=== PATIENT | female | born 1995 | race Caucasian/White ===

== ENCOUNTER 2023-01-11 11:39 | Outpatient (CLI) | payer OTHER, SELFPAY ==
--- NOTE | 2023-01-11 13:08 | PM.OBTRLD ---
Visit Information Visit Information Date of evaluation: 01/11/23 On-call OB Provider: Elana Kenny Reason for Evaluation: Yes pre-term labor Vital Signs Vital Signs: 110/56 HR100 [facility] Social History Smoking Status: Former smoker Comment: NKDA Meds: sertraline OB: labor 32w, emergent PCD, baby Analisa demise at 2w of life Med: denies Surg: PCD 2020 Review of Systems Review of Systems ROS: Yes All systems reviewed with the patient and are negative except as otherwise documented Exam Vital Signs (past 8 hours): 110/56 HR101 Const General: cooperative, healthy appearing and comfortable Eyes General: appearance normal, both eyes and all related structures Resp Effort & Inspection: normal respiratory effort GI Palpation: soft Speculum Exam - Vagina: normal appearance of the vagina Speculum Exam - Cervix: closed Manual OB Exam: dilated fingertip, effaced 25% and station high Skin General: no rashes or lesions noted Neuro General: patient alert and patient oriented x3 Extrem General: normal to inspection Psych Appearance: grossly normal Evaluation Evaluation Baseline heart rate: 120 Variability: Moderate (11-25) monitor accelerations: Present (15x15) Monitor Decelerations: Absent Category of Tracing: Reactive Status: Category l Cervical dilation (cm): 0 Cervical effacement (%): 25 station: -3 Diagnosis, Plan/Disposition Plan/Disposition Plan: 28yo at 28.5w brought to triage via EMS from her work. She reports she closed her eyes at her desk and woke up and had a panic attack. First child born at 32w via emergency PCD due to labor at [facility] 2020. Baby girl Analisa required transfer to [facility], diagnosed with rare AR condition and demise at ~2w of life. She reports she has increasingly become anxious as she gets closer to 32w. She does take sertraline but forgot to take today. She is also starting to see therapist on Sunday in a few days. She did complain of pelvic cramping and would also like to make sure she is not in labor again. Denies regular contractions or pressure. No leaking or bleeding. Good movement. VSS as above Benign exam NST reactive SVE closed 28yo at 28.5w, false labor third trimester; also mental health disorder complicating - NST reactive - labor precautions - Encouraged sertraline and mental health therapy which is scheduled - Follow up with primary OB
== END 2023-01-11 13:08 | disposition home or self-care (01) ==
LOC: LABOR 12:05 → OB 02-12 10:31
PROVIDERS: PCP Nurse Practitioner Family; Referring Provider Obstetrics & Gynecology; Visit Provider Obstetrics & Gynecology
DX: O47.03 False labor before 37 completed weeks of gestation, third trimester (principal); O99.343 Other mental disorders complicating pregnancy, third trimester; F99 Mental disorder, not otherwise specified; Z3A.28 28 weeks gestation of pregnancy
CPT/HCPCS: 59025; G0378; G0379

== ENCOUNTER 2023-04-15 07:53 | Emergency (ER) | payer OTHER, SELFPAY ==
[2023-04-15] VITALS (10 sets, daily range): BP systolic 105–120; BP diastolic 66–75; PULSE 74–95; RESP 20; TEMP 36.9; O2SAT 95–98; BMI 34.1
--- NOTE | 2023-04-15 07:59 | ED.GENADULT ---
HPI - General Adult General Chief complaint: Abdominal Pain Stated complaint: RUQ px Time Seen by Provider: 04/15/23 07:54 Source: patient Mode of arrival: EMS Limitations: no limitations History of Present Illness HPI narrative: Patient is a 28-year-old female. She states that on the of last month (approximately 1.5 weeks ago) she had a laparoscopic cholecystectomy at an outside hospital. Things went well. States she woke up this morning with discomfort in her upper abdomen. She states that it feels like it did when she had gallstones. It has been persistent since she woke up this morning. Some nausea but no vomiting. No fevers. States that the discomfort is not worse when you touch on her abdomen. No change in bowel habits or urine symptoms. Related Data Home Medications Medication Instructions Recorded Confirmed dextroamphetamine-amphetamine ER 1 cap PO QAM 11/08/22 11/08/22 10 mg 24hr capsule,extend release sertraline 100 mg tablet mg PO 11/08/22 11/08/22 Allergies Allergy/AdvReac Type Severity Reaction Status Date / Time No Known Drug Allergies Allergy Unverified 11/08/22 13:37 Review of Systems Constitutional Constitutional: Reports system reviewed and no additional complaints, except as documented Cardiovascular Cardiovascular: Reports system reviewed and no additional complaints, except as documented Respiratory Respiratory: Reports system reviewed and no additional complaints, except as documented Gastrointestinal Gastrointestinal: Reports system reviewed and no additional complaints, except as documented Integumentary/Breasts Skin/Breast: Reports system reviewed and no additional complaints, except as documented Patient History Social History Smoking Status: Former smoker Smoking Status: Former smoker Exam Initial Vital Signs Initial Vital Signs: Vital Signs Temperature 98.4 F 04/15/23 08:03 Pulse Rate 81 04/15/23 08:03 Respiratory Rate 20 04/15/23 08:03 Blood Pressure 119/74 04/15/23 08:03 Pulse Oximetry 98 04/15/23 08:03 Oxygen Delivery Method Room Air 04/15/23 08:03 HENMT Head: normal to inspection and normocephalic Resp Effort & Inspection: normal respiratory effort Auscultation: clear to auscultation bilaterally Cardio Rate: regular rate Rhythm: regular rhythm GI Inspection: normal to inspection and non-distended Palpation: soft, No firm, No guarding and No tender Skin Other: Surgical wounds healing well. No signs of infection. Neuro General: patient alert, patient awake and moves all extremities Extrem General: capillary refill normal Course Orders Ordered: ED Orders 04/15/23 08:01 Complete Blood Count AUTO DIFF Stat Comprehensive Metabolic Panel Stat Lipase Stat Test Serum,Qual Stat 04/15/23 08:23 MRCP [MR abdomen wo/w con] Stat Discontinued Medications Sodium Chloride (Normal Saline 0.9%) 1,000 mls @ 1,000 mls/hr IV BOLUS ONE Stop: 04/15/23 09:25 Last Admin: 04/15/23 08:34 Dose: 1,000 mls/hr Documented By: MADDIE Ketorolac Tromethamine (Ketorolac 30 Mg/Ml Vial) 30 mg IV NOW ONE Stop: 04/15/23 08:24 Last Admin: 04/15/23 08:34 Dose: 30 mg Documented By: MADDIE Ketorolac Tromethamine (Ketorolac 30 Mg/Ml Vial) 30 mg IV NOW ONE Stop: 04/15/23 08:27 Last Admin: 04/15/23 09:37 Dose: Not Given Documented By: RB Vital Signs Vital signs: Vital Signs - 8 hr 04/15/23 08:03 04/15/23 08:05 04/15/23 08:06 Temperature 98.4 F Pulse Rate 81 76 Respiratory Rate 20 Blood Pressure 119/74 120/75 Pulse Oximetry 98 98 Oxygen Delivery Method Room Air 04/15/23 08:06 04/15/23 08:30 04/15/23 08:31 Temperature Pulse Rate 74 78 Respiratory Rate Blood Pressure 106/66 Pulse Oximetry 98 97 Oxygen Delivery Method 04/15/23 08:31 04/15/23 09:27 04/15/23 09:30 Temperature Pulse Rate 80 95 H 90 Respiratory Rate Blood Pressure Pulse Oximetry 97 98 97 Oxygen Delivery Method 04/15/23 10:00 04/15/23 10:16 04/15/23 10:16 Temperature Pulse Rate 84 86 Respiratory Rate Blood Pressure 107/72 Pulse Oximetry 95 98 Oxygen Delivery Method Medical Decision Making Lab Data Lab results reviewed: Yes I reviewed the patient's lab results. 04/15/23 08:01 04/15/23 08:01 Labs: Lab Results 04/15/23 Range/Units 08:01 WBC 8.2 (4.5-11.0) X10^3/uL RBC 3.91 L (4.0-5.2) X10^6/uL Hgb 11.1 L (12.0-16.0) g/dL Hct 33.4 L (36-46) % MCV 85.3 (80-100) fL MCH 28.4 (26-34) PG MCHC 33.2 (30-36) % RDW 13.1 (11.6-14.8) % Plt Count 257 (150-400) X10^3/uL Neut % (Auto) 72.5 (50-75) % Lymph % (Auto) 21.0 L (25-40) % [place] % (Auto) 3.1 (3-14) % Eos % (Auto) 2.5 (2-4) % Baso % (Auto) 0.9 (0-2) % Neut # (Auto) 5900 (1144-3224) /uL Lymph # (Auto) 1700 (1977-4291) /uL [place] # (Auto) 300 (0-900) /uL Eos # (Auto) 200 (0-450) /uL Baso # (Auto) 100 (0-100) /uL Sodium 137 (137-145) mmol/L Potassium 3.6 (3.4-5.1) mmol/L Chloride 107 (98-107) mmol/L Carbon Dioxide 19 L (22-32) mmol/L BUN 13 (7-17) mg/dL Creatinine 0.64 (0.52-1.04) mg/dL Estimated GFR > 60 (>60) mL/min BUN/Creatinine Ratio 20.3 (6-22) Glucose 96 (70-100) mg/dL Calcium 9.6 (8.4-10.2) mg/dL Total Bilirubin 0.6 (0.2-1.3) mg/dL AST 139 H (14-36) IU/L ALT 50 H (<35) IU/L Alkaline Phosphatase 224 H (38-126) U/L Total Protein 7.2 (6.3-8.2) g/dL Albumin 4.2 (3.5-5.0) g/dL Globulin 3.0 (1.7-4.1) g/dL Albumin/Globulin Ratio 1.4 (1.0-2.8) Lipase 85 (23-300) U/L Serum , Qual Negative (Negative) Imaging Data MRCP: Radiologist's Impression: PROCEDURE: MR ABDOMEN WO/W CON INDICATIONS: Lap nikolay 2 weeks ago, concern for retained stone TECHNIQUE: Coronal HASTE, axial 2D FLASH in- and [id number]; axial breath-hold T2 FSE with fat saturation from the hepatic dome to the iliac crests. Oblique coronal thin-slice and radial thick slab HASTE through the biliary system. Dynamic axial VIBE during administration of contrast. Post-contrast coronal VIBE or 2D FLASH with fat saturation from the hepatic dome to the iliac crests. Optional diffusion weighted imaging and ADC may be performed. COMPARISON: None. FINDINGS: Image quality: Diagnostic, with note made of motion artifact. Gallbladder: Removed. Biliary ducts: No biliary dilation. No stones are seen. Pancreas: No ductal dilation. OTHER: Lung bases: Unremarkable. Liver: No solid mass. Diffuse fatty liver infiltration is noted. Spleen: Size is within normal limits. Adrenal Glands: No adrenal nodules. Kidneys and Ureters: No hydronephrosis. No solid mass. No complex renal cystic lesion which requires follow up. Stomach and Bowel: Normal colonic caliber, without significant wall thickening. Peritoneum: No abnormal intraperitoneal fluid. No free air. Ventral Wall: No hernia. Abdominal Nodes: No retroperitoneal or mesenteric adenopathy by size criteria. Vessels: Aorta and inferior vena cava are normal in size. Bones: No aggressive osseous abnormality. IMPRESSION: No biliary dilatation is seen. No common duct stones are seen. Status post cholecystectomy, without complication observed. MDM Narrative Medical decision making narrative: Patient's abdominal pain is located in the right upper quadrant. No leukocytosis. Does have an elevation in her LFTs but she is just under 2 weeks status post lap choly. She states her symptoms are very similar to when she had gallstones. She was told by the surgeon that she had multiple small stones in the gallbladder and there was some concern that potentially they could have moved into some of the ducts. An MRCP does not show any signs of common bile duct stone. I discuss this with the patient. I do feel that we can hold on further radiologic studies such as a CT scan. She actually has no discomfort with palpation in the right upper quadrant if this is just the location of the discomfort that she is feeling. Will have her follow all of the postoperative instructions given to her by the surgeons. She has a follow-up with the surgeon later this week. She was given return precautions. She expressed understanding and agreement. Discharge Plan Departure Patient Disposition: Home Clinical Impression: Abdominal pain Instructions: DI for Abdominal Pain-Adult Activity Restrictions/Additional Instructions: Continue to follow all of the postoperative instructions given to you by the surgeon so keep your follow-up appointment. None of the workup that we did today prevents you from see you can continue to do that as normal. Contact your primary doctor for a follow-up. Return to the emergency department for new symptoms. Prescriptions: No Action dextroamphetamine-amphetamine 10 mg capsule,extended release 24hr 1 cap PO QAM sertraline 100 mg tablet PO Referrals: Jayda Colmenares ARNP [Primary Care Provider] - Stand Alone Forms: Patient Portal/API
[2023-04-15 08:09] LABS: Add Manual Diff / Slide Review NO; Basophils Absolute Auto 100 /uL (0-100); Basophils Percent Auto 0.9 % (0-2); Eosinophils Absolute Auto 200 /uL (0-450); Eosinophils Percent Auto 2.5 % (2-4); Hematocrit 33.4 % (36-46); Hemoglobin 11.1 g/dL (12.0-16.0); Lymphocytes Absolute Auto 1700 /uL (1100-4500); Mean Corpuscular HGB Conc 33.2 % (30-36); Mean Corpuscular Hemoglobin 28.4 PG (26-34); Mean Corpuscular Volume 85.3 fL (80-100); Monocytes Absolute Auto 300 /uL (0-900); Monocytes Percent Auto 3.1 % (3-14); Neutrophils Absolute Auto 5900 /uL (1500-7000); Neutrophils Percent Auto 72.5 % (50-75); Platelet Count 257 X10^3/uL (150-400); Red Blood Cell Count 3.91 X10^6/uL (4.0-5.2); Red Cell Distribution Width 13.1 % (11.6-14.8); White Blood Cell Count 8.2 X10^3/uL (4.5-11.0)
[2023-04-15 08:20] LABS: Alanine Aminotransferase 50 IU/L (<35); Albumin 4.2 g/dL (3.5-5.0); Albumin Globulin Ratio 1.4 (1.0-2.8); Alkaline Phosphatase 224 U/L (38-126); Aspartate Aminotransferase 139 IU/L (14-36); BUN Creatinine Ratio 20.3 (6-22); Bilirubin Total 0.6 mg/dL (0.2-1.3); Blood Urea Nitrogen 13 mg/dL (7-17); Calcium 9.6 mg/dL (8.4-10.2); Carbon Dioxide 19 mmol/L (22-32); Chloride 107 mmol/L (98-107); Estimated Glomerular Filt Rate > 60 mL/min (>60); Glucose 96 mg/dL (70-100); HEMOLYSIS < 15 (0-50); Lipase 85 U/L (23-300); Potassium 3.6 mmol/L (3.4-5.1); Sodium 137 mmol/L (137-145); Total Protein 7.2 g/dL (6.3-8.2)
--- NOTE | 2023-04-15 08:23 | DI.MRI.S_ITS ---
PROCEDURE: MR ABDOMEN WO/W CON INDICATIONS: Lap nikolay 2 weeks ago, concern for retained stone TECHNIQUE: Coronal HASTE, axial 2D FLASH in- and [id number]; axial breath-hold T2 FSE with fat saturation from the hepatic dome to the iliac crests. Oblique coronal thin-slice and radial thick slab HASTE through the biliary system. Dynamic axial VIBE during administration of contrast. Post-contrast coronal VIBE or 2D FLASH with fat saturation from the hepatic dome to the iliac crests. Optional diffusion weighted imaging and ADC may be performed. COMPARISON: None. FINDINGS: Image quality: Diagnostic, with note made of motion artifact. Gallbladder: Removed. Biliary ducts: No biliary dilation. No stones are seen. Pancreas: No ductal dilation. OTHER: Lung bases: Unremarkable. Liver: No solid mass. Diffuse fatty liver infiltration is noted. Spleen: Size is within normal limits. Adrenal Glands: No adrenal nodules. Kidneys and Ureters: No hydronephrosis. No solid mass. No complex renal cystic lesion which requires follow up. Stomach and Bowel: Normal colonic caliber, without significant wall thickening. Peritoneum: No abnormal intraperitoneal fluid. No free air. Ventral Wall: No hernia. Abdominal Nodes: No retroperitoneal or mesenteric adenopathy by size criteria. Vessels: Aorta and inferior vena cava are normal in size. Bones: No aggressive osseous abnormality. IMPRESSION: No biliary dilatation is seen. No common duct stones are seen. Status post cholecystectomy, without complication observed. Dictated by: Jorge Woody M.D. on 04/15/2023 at 8:58 Approved by: Jorge Woody M.D. on 04/15/2023 at 9:00
--- NOTE | 2023-04-15 08:24 | PC.NURSE ---
Pt given breast pump and supplies. pt states that she is feeling very cold. Skin cool to touch and face very clammy. Pt skin pale and cool to touch. Pt shivering despite temp of 98.[address] Can notified. VS WNL at this time.
[2023-04-15 08:26] LABS: Pregnancy Test Serum,Qual Negative (Negative)
[2023-04-15] MEDS: KETOROLAC 30 MG/ML VIAL IV (08:34)
[2023-04-15] MEDS: SODIUM CHLORIDE 0.9% 1,000 ML 1000 ML IV (08:34)
== END 2023-04-15 10:52 | disposition home or self-care (01) ==
PROVIDERS: Emergency Provider Emergency Medicine; PCP Nurse Practitioner Family
DX: R10.11 Right upper quadrant pain (principal); Z90.49 Acquired absence of other specified parts of digestive tract
CPT/HCPCS: 74183; 80053; 81003; 83690; 84703; 85025; 96374; 99284; J1885